=== PATIENT | female | born 2005 | race Caucasian/White ===

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

== ENCOUNTER → 2023-04-24 | Outpatient (CLI) | payer BC, OTHER ==
--- NOTE | 2023-04-24 15:19 | US ---
EXAMINATION TYPE: US pelvic complete DATE OF EXAM: 04/24/2023 COMPARISON: NONE CLINICAL INDICATION: Female, 18 years old with history of N93.9 ABNORMAL UTERINE AND VAGINAL BLEEDING , UNSPE; Pt states vaginal spotting x 1 month TECHNIQUE: Transabdominal (TA). Transabdominal sonographic images of the pelvis were acquired. Date of LMP: 04/16/2023 EXAM MEASUREMENTS: Uterus: 6.4 x 3.2 x 3.9 cm Endometrial Stripe: 0.6 cm Right Ovary: 3.7 x 3.0 x 2.5 cm Left Ovary: 3.4 x 2.2 x 3.4 cm 1. Uterus: Anteverted wnl 2. Endometrium: wnl 3. Right Ovary: Possibly polycystic in appearance 4. Left Ovary: follicles 5. Bilateral Adnexa: wnl 6. Posterior cul-de-sac: wnl IMPRESSION: Polycystic appearing right ovary.
== END | disposition home or self-care (01) ==
LOC: RADUSWWP 14:54
PROVIDERS: ATTEND Family Medicine
DX: N93.9 Abnormal uterine and vaginal bleeding, unspecified (principal); E28.2 Polycystic ovarian syndrome
CPT/HCPCS: 76856